=== PATIENT | male | born 1995 | race African-American/Black ===

== ENCOUNTER 2017-06-21 20:50 | Emergency (ER) | payer OTHER ==
[2017-06-21 20:58] VITALS: BP 105/55; PULSE 43; RESP 16; TEMP 97.5; O2SAT 99
[2017-06-21] MEDS ORDERED: LIDOCAINE HCL 1% 50 ML VIAL INFIL ONE (21:15)
[2017-06-21] MEDS ORDERED: TETANUS/DIPHTHERIA TOXOID ADULT 0.5 ML VIAL IM ONE (21:15)
[2017-06-21 21:24] VITALS: BP 117/67; PULSE 46; RESP 16; O2SAT 98
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
[2017-06-21] MEDS ORDERED: ACETAMINOPHEN 325 MG TAB PO ONE (22:15)
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
[2017-06-21] MEDS ORDERED: ONDANSETRON ODT 4 MG TAB PO ONE (23:15)
== END 2017-06-21 23:53 | disposition home or self-care (01) ==
LOC: NEPC 20:50
DX: S06.0X0A Concussion without loss of consciousness, initial encounter (principal); S01.112A Laceration without foreign body of left eyelid and periocular area, initial encounter; W50.0XXA Accidental hit or strike by another person, initial encounter; Y93.62 Activity, american flag or touch football; Z23 Encounter for immunization
CPT/HCPCS: 12011; 70450; 72125; 90471; 90714

== ENCOUNTER 2017-06-27 12:21 | Emergency (ER) | payer OTHER ==
[~2017-06-27] VITALS: Ht 175.3 cm; Wt 75.0 kg
[2017-06-27 12:34] VITALS: BP 160/67; PULSE 71; RESP 12; TEMP 98.4; O2SAT 98
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
== END 2017-06-27 14:41 | disposition home or self-care (01) ==
LOC: NEPK 12:21
DX: Z48.02 Encounter for removal of sutures (principal); H11.32 Conjunctival hemorrhage, left eye
CPT/HCPCS: 99282